=== PATIENT | female | born 1995 | race Caucasian/White ===

== ENCOUNTER 2017-03-29 11:30 | Emergency (ER) | payer OTHER ==
[2017-03-29 12:09] VITALS: BP 128/72
--- NOTE | 2017-03-29 12:41 | UC ---
HPI Febrile Illness - HPI Summary HPI Summary: Since yesterday she has had malaise, fever, vomiting, aching, cough, sore throat. No dysuria but she has had left lower flank tenderness. - History of Current Complaint Chief Complaint: UCRespiratory Time Seen by Provider: 03/29/17 12:14 Hx Obtained From: Patient Hx Last Menstrual Period: 12/24/16 Onset/Duration: Started Days Ago Timing: Constant, Lasting Hours Initial Severity: Moderate Current Severity: Moderate Aggravating Factors: Other: - swallow. Alleviating Factors: OTC Medicine - motrin for the fever. Associated Signs and Symptoms: Chills, Cough, Myalgia, Vomiting - Allergy/Home Medications Allergies/Adverse Reactions: Allergies Allergy/AdvReac Type Severity Reaction Status Date / Time Latex Allergy Hives Verified 03/29/17 12:09 Home Medications: Home Medications Ibuprofen TAB* [Advil TAB*] 400 mg PO Q6H PRN 03/29/17 [History Confirmed ] PMH/Surg Hx/FS Hx/Imm Hx Previously Healthy: No - Surgical History Surgical History: None - Family History Known Family History: Positive: Other - no related fh. - Social History Occupation: Employed Full-time Alcohol Use: None Substance Use Type: None Smoking Status (MU): Never Smoked Tobacco - Immunization History Most Recent Influenza Vaccination: no Review of Systems Constitutional: Fever ENT: Sore Throat Respiratory: Cough Gastrointestinal: Vomiting All Other Systems Reviewed And Are Negative: Yes Physical Exam Triage Information Reviewed: Yes Appearance: Well-Appearing, No Pain Distress, Well-Nourished Vital Signs: Initial Vital Signs Temp 99.5 F 03/29/17 12:04 Pulse 94 03/29/17 12:04 Resp 15 03/29/17 12:04 BP 128/72 03/29/17 12:04 Pulse Ox 100 03/29/17 12:04 Vital Signs Reviewed: Yes Eyes: Positive: Conjunctiva Clear. Negative: Conjunctiva Inflamed ENT: Positive: Pharyngeal erythema, Nasal congestion, TMs normal. Negative: Tonsillar swelling, Tonsillar exudate, Trismus, Muffled/hoarse voice Neck exam: Normal Neck: Positive: Supple, Nontender, No Lymphadenopathy Respiratory: Positive: Lungs clear, Normal breath sounds, No respiratory distress, No accessory muscle use. Negative: Respiratory distress, Decreased breath sounds, Accessory muscle use, Crackles, Rhonchi, Stridor, Wheezing Cardiovascular Exam: Normal Cardiovascular: Positive: RRR, No Murmur, Pulses Normal, Brisk Capillary Refill , Tachycardia Abdomen Description: Positive: Nontender, No Organomegaly, Soft. Negative: CVA Tenderness (R), CVA Tenderness (L) - there is tenderness of the left paraspinal muscle on the left but not in the CVA area. Musculoskeletal: Positive: Strength Intact, ROM Intact, No Edema Neurological: Positive: Alert, Muscle Tone Normal, Fatigued Skin: Negative: rashes Course/Dx - Febrile Illness Differential Diagnoses: Encephalitis, Endocarditis, Fever of Unknown Origin, Medication Reaction, Meningitis, Neoplasm, [employer] Spotted Fever, Sepsis , Tuberculosis, Toxic Shock Syndrome, Viremia - Diagnoses Clinic Provider Diagnoses: pharyngitis. flank pain. fever. malaise. myalgia Discharge - Discharge Plan Condition: Good Disposition: HOME Prescriptions: Ondansetron ODT TAB* [Zofran 4 MG Odt TAB*] 4 mg PO Q6H PRN #20 tab.odt PRN Reason: Vomiting Patient Education Materials: Acute Nausea and Vomiting (ED) Forms: *School Release Additional Instructions: return here for any worsening.
--- NOTE | 2017-03-31 11:51 | UC ---
Progress - Progress Note Progress Note: RN to call pt. Preilm cx + proteus mirabilis / penneri. Sens pending, but because of her clinical condition, e-script for Bactrim ds. Advise that if cx turns out resistant to Bactrim, the pt will be notified.
== END 2017-03-29 13:11 | disposition home or self-care (01) ==
LOC: EDBD → UCCORT 11:30
DX: J02.9 Acute pharyngitis, unspecified (principal); R10.9 Unspecified abdominal pain; R50.9 Fever, unspecified; R53.81 Other malaise; M79.1 Myalgia; Z32.02 Encounter for pregnancy test, result negative
CPT/HCPCS: 81003; 84702; 87077; 87086; 87186; 87651; 99202; G0463